=== PATIENT | male | born 2000 | race American Indian/Alaskan Native ===

== ENCOUNTER 2021-04-14 14:37 | Emergency (ER) | payer SELFPAY ==
[2021-04-14 14:45] VITALS: BP 113/68
[2021-04-14] MEDS ORDERED: HYDROcodone/ACETAMINOPHEN 7.5-325MG TAB PO ONE (15:02)
--- NOTE | 2021-04-14 15:13 | Emergency Department Report ---
ED ENT HPI - General Chief complaint: Dental/Oral Stated complaint: SWOLLEN JAW/EYE Time Seen by Provider: 04/14/21 15:02 Source: patient Mode of arrival: Ambulatory Limitations: No Limitations - History of Present Illness Initial comments: 20-year-old -[place] male presents to the emergency room for right side facial swelling with known dental problems. Patient states is been going on for about 2 to 3 days. He states he has an infected tooth. He has not taken anything for pain. He reports a history of asthma uses albuterol as needed. D enies any injury to his face. Noted to have a low-grade fever 100.1. MD complaint: tooth pain Onset/Timin -: days(s) Location: tooth # (3) Severity: severe Severity scale (0 -10): 10 Quality: stabbing, aching, sharp Consistency: constant Improves with: none Worsens with: eating, movement Context- Dental: history of dental caries, poor dental care Associated Symptoms: fever, gum swelling, toothache (Low-grade) - Related Data Previous Rx's Medication Instructions Recorded Last Taken Type Acetaminophen/Codeine [Tylenol 1 tab PO Q6H PRN #12 tab 04/14/21 Unknown Rx /Codeine # 3 tab] Amoxicillin/K Clav Tab [Augmentin 1 tab PO Q12HR 10 Days #20 tab 04/14/21 Unknown Rx 875 mg] Ibuprofen [Motrin 600 MG tab] 600 mg PO Q8H PRN #30 tablet 04/14/21 Unknown Rx Allergies Allergy/AdvReac Type Severity Reaction Status Date / Time No Known Allergies Allergy Verified 04/14/21 14:46 ED Dental HPI - General Chief complaint: Dental/Oral Stated complaint: SWOLLEN JAW/EYE Time Seen by Provider: 04/14/21 15:02 Source: patient Mode of arrival: Ambulatory Limitations: No Limitations - Related Data Previous Rx's Medication Instructions Recorded Last Taken Type Acetaminophen/Codeine [Tylenol 1 tab PO Q6H PRN #12 tab 04/14/21 Unknown Rx /Codeine # 3 tab] Amoxicillin/K Clav Tab [Augmentin 1 tab PO Q12HR 10 Days #20 tab 04/14/21 Unknown Rx 875 mg] Ibuprofen [Motrin 600 MG tab] 600 mg PO Q8H PRN #30 tablet 04/14/21 Unknown Rx Allergies Allergy/AdvReac Type Severity Reaction Status Date / Time No Known Allergies Allergy Verified 04/14/21 14:46 ED Review of Systems ROS: Stated complaint: SWOLLEN JAW/EYE Other details as noted in HPI Comment: All other systems reviewed and negative ED Past Medical Hx - Past Medical History Previous Medical History?: Yes Hx Asthma: Yes - Surgical History Past Surgical History?: No - Medications Home Medications: Home Medications Medication Instructions Recorded Confirmed Last Taken Type Acetaminophen/Codeine [Tylenol 1 tab PO Q6H PRN #12 tab 04/14/21 Unknown Rx /Codeine # 3 tab] Amoxicillin/K Clav Tab [Augmentin 1 tab PO Q12HR 10 Days #20 tab 04/14/21 Unknown Rx 875 mg] Ibuprofen [Motrin 600 MG tab] 600 mg PO Q8H PRN #30 tablet 04/14/21 Unknown Rx ED Physical Exam - General Limitations: No Limitations General appearance: alert, in no apparent distress - Head Head exam: Present: atraumatic, normocephalic - Eye Eye exam: Present: normal appearance - ENT ENT exam: Present: mucous membranes moist - Expanded ENT Exam Expanded Teeth exam: Present: dental tenderness #, gingival enlargement, other. Absent: normal inspection - Neck Neck exam: Present: normal inspection, full ROM - Respiratory Respiratory exam: Present: normal lung sounds bilaterally. Absent: respiratory distress - Cardiovascular Cardiovascular Exam: Present: regular rate, normal rhythm. Absent: systolic murmur, diastolic murmur, rubs, gallop - GI/Abdominal GI/Abdominal exam: Present: soft, normal bowel sounds - Rectal Rectal exam: Present: deferred - Extremities Exam Extremities exam: Present: normal inspection - Back Exam Back exam: Present: normal inspection - Neurological Exam Neurological exam: Present: alert, oriented X3 - Psychiatric Psychiatric exam: Present: normal affect, normal mood - Skin Skin exam: Present: warm, dry, intact, normal color. Absent: rash ED Course Vital Signs 04/14/21 14:44 Temperature 100.0 F H Pulse Rate 62 Respiratory 18 Rate Blood Pressure 113/68 O2 Sat by Pulse 99 Oximetry ED Medical Decision Making - Medical Decision Making 20-year-old -[place] male presents to the emergency room for right side facial swelling with known dental problems. Patient states is been going on for about 2 to 3 days. He states he has an infected tooth. He has not taken anything for pain. He reports a history of asthma uses albuterol as needed. Denies any injury to his face. Noted to have a low-grade fever 100.1. Critical care attestation.: If time is entered above; I have spent that time in minutes in the direct care of this critically ill patient, excluding procedure time. ED Disposition Clinical Impression: Dental abscess Disposition: HOME / SELF CARE / HOMELESS Is pt being admited?: No Does the pt Need Aspirin: No Condition: Stable Instructions: Dental Abscess, [id number] Additional Instructions: Complete antibiotics as prescribed pain medication as needed. Do not operate heavy mesh Nallely while taking Tylenol 3. Please increase your fluid intake. Prescriptions: Amoxicillin/K Clav Tab [Augmentin 875 mg] 1 tab PO Q12HR 10 Days #20 tab Ibuprofen [Motrin 600 MG tab] 600 mg PO Q8H PRN #30 tablet PRN Reason: Pain Acetaminophen/Codeine [Tylenol /Codeine # 3 tab] 1 tab PO Q6H PRN #12 tab PRN Reason: Pain , Severe (7-10) Referrals: [facility] [Outside] - 3-5 Days [facility] [Outside] - 3-5 Days [facility] [Outside] - 3-5 Days Forms: Work/School Release Form(ED) Time of Disposition: 15:20
== END 2021-04-14 15:33 | disposition home or self-care (01) ==
LOC: ED 14:37
DX: K04.7 Periapical abscess without sinus (principal); J45.909 Unspecified asthma, uncomplicated
CPT/HCPCS: 99282